=== PATIENT | male | born 1995 | race Asian ===

== ENCOUNTER 2017-06-01 21:41 | Emergency (ER) | payer SELFPAY ==
[2017-06-01 21:52] VITALS: RESP 18
[2017-06-01] MEDS ORDERED: LET GEL TOPICAL 1 EA SYR TP ONE ×2 (22:02→22:25)
[2017-06-01] MEDS ORDERED: OXYCODONE/APAP 5/325 TAB PO ONE (22:35)
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
[2017-06-01] MEDS ORDERED: OXYCODONE/APAP 5/325MG PREPACK#4 BTL TAKEHOME ONE (23:02)
[2017-06-01 23:34] VITALS: BP 122/81; PULSE 99; TEMP 99.5; O2SAT 95
== END 2017-06-01 23:42 | disposition home or self-care (01) ==
DX: S63.075A Dislocation of distal end of left ulna, initial encounter (principal); S50.812A Abrasion of left forearm, initial encounter; S50.811A Abrasion of right forearm, initial encounter; S80.211A Abrasion, right knee, initial encounter; V18.0XXA Pedal cycle driver injured in noncollision transport accident in nontraffic accident, initial encounter; Y92.410 Unspecified street and highway as the place of occurrence of the external cause; Y99.8 Other external cause status; Y93.55 Activity, bike riding